=== PATIENT | male | born 1950 | race African-American/Black ===

== ENCOUNTER 2017-12-13 13:48 | Emergency (ER) | payer MEDICAID ==
[~2017-12-13] VITALS: Ht 165.1 cm; Wt 66.0 kg
[2017-12-13 16:05] VITALS: BP 122/64
== END 2017-12-13 16:07 | disposition home or self-care (01) ==
LOC: ER 15:01
DX: M25.572 Pain in left ankle and joints of left foot (principal); R03.0 Elevated blood-pressure reading, without diagnosis of hypertension; F17.200 Nicotine dependence, unspecified, uncomplicated; F12.10 Cannabis abuse, uncomplicated; Z87.828 Personal history of other (healed) physical injury and trauma
CPT/HCPCS: 73610; 99284